=== PATIENT | female | born 1965 | race Two or more races ===

== ENCOUNTER → 2017-12-24 17:49 | Outpatient (CLI) | payer OTHER | END | disposition home or self-care (01) | LOC: LAB 17:49 | DX: R50.9 Fever, unspecified (principal); R05 Cough ==

== ENCOUNTER → 2017-12-24 | Outpatient (CLI) | payer OTHER ==
[~2017-12-24] VITALS: Ht 152.4 cm; Wt 81.6 kg
[~2017-12-24] MED LIST: FLONASE16 GM NS; GILTUSS TR TAB1 EACH PO; HYZAAR 100-12.1 EACH; HYZAAR 50-12.51 EACH; HYZAAR 50-12.51 EACH PO; LIPITOR20 MG PO; PRAVASTATIN SOD20 MG; PRAVASTATIN SOD20 MG PO; PROAIR HFA8.5 GM IH; SYNTHROID50 MCG; SYNTHROID50 MCG PO; VITAMIN E & D B52 ML; VITAMIN E & D B52 ML PO; ZITHROMAX TRI-500 MG PO; ZYRTEC10 MG PO
== END | disposition home or self-care (01) ==
LOC: PPHC 16:00
DX: R05 Cough (principal); R50.9 Fever, unspecified; R51 Headache; J06.9 Acute upper respiratory infection, unspecified

== ENCOUNTER → 2018-03-04 | Outpatient (CLI) | payer OTHER | END | disposition home or self-care (01) | LOC: PPHC 08:18 | DX: A08.8 Other specified intestinal infections (principal) ==

== ENCOUNTER 2018-03-13 06:07 | Outpatient (CLI) | payer OTHER | END 2018-03-13 06:15 | disposition home or self-care (01) | LOC: LAB 06:07 | DX: D64.9 Anemia, unspecified (principal); N39.0 Urinary tract infection, site not specified; R10.9 Unspecified abdominal pain; E03.9 Hypothyroidism, unspecified; E78.5 Hyperlipidemia, unspecified; R80.9 Proteinuria, unspecified; E11.9 Type 2 diabetes mellitus without complications; R73.09 Other abnormal glucose ==

== ENCOUNTER 2018-04-16 10:29 | Outpatient (CLI) | payer OTHER | END 2018-04-16 14:07 | disposition home or self-care (01) | LOC: LAB 10:29 | DX: Z11.3 Encounter for screening for infections with a predominantly sexual mode of transmission (principal) ==

== ENCOUNTER 2018-04-30 07:23 | Outpatient (CLI) | payer OTHER | END 2018-05-01 08:41 | disposition home or self-care (01) | LOC: SONOGRAMA 07:23 | DX: E03.8 Other specified hypothyroidism (principal) ==

== ENCOUNTER 2018-10-21 07:47 | Outpatient (CLI) | payer OTHER | END 2018-10-21 07:54 | disposition home or self-care (01) | LOC: MAMO-SONO 07:47 | DX: Z12.31 Encounter for screening mammogram for malignant neoplasm of breast (principal) ==

== ENCOUNTER 2018-10-22 08:02 | Emergency (ER) | payer OTHER ==
[~2018-10-22] VITALS: Ht 167.6 cm; Wt 81.6 kg
== END 2018-10-22 09:19 | disposition home or self-care (01) ==
LOC: ER 08:02
DX: R42 Dizziness and giddiness (principal); R51 Headache

== ENCOUNTER → 2018-10-31 06:18 | Outpatient (CLI) | payer OTHER | END | disposition home or self-care (01) | LOC: LAB 06:18 | DX: I10 Essential (primary) hypertension (principal); E55.9 Vitamin D deficiency, unspecified; E03.8 Other specified hypothyroidism ==

== ENCOUNTER 2018-11-04 10:25 | Outpatient (CLI) | payer OTHER | END 2018-11-04 10:26 | disposition home or self-care (01) | LOC: SONOGRAMA 10:25 | DX: N64.4 Mastodynia (principal) ==

== ENCOUNTER 2018-12-20 09:07 | Outpatient (CLI) | payer OTHER | END 2018-12-20 09:13 | disposition home or self-care (01) | LOC: LAB 09:07 | DX: J11.1 Influenza due to unidentified influenza virus with other respiratory manifestations (principal); J06.9 Acute upper respiratory infection, unspecified ==

== ENCOUNTER 2019-01-30 06:43 | Outpatient (CLI) | payer OTHER | END 2019-01-30 07:48 | disposition home or self-care (01) | LOC: LAB 06:43 | DX: D64.89 Other specified anemias (principal); E11.9 Type 2 diabetes mellitus without complications; E78.2 Mixed hyperlipidemia; K76.89 Other specified diseases of liver; E03.8 Other specified hypothyroidism; E55.9 Vitamin D deficiency, unspecified; R29.898 Other symptoms and signs involving the musculoskeletal system ==

== ENCOUNTER 2019-05-12 06:12 | Outpatient (CLI) | payer OTHER | END 2019-05-12 06:13 | disposition home or self-care (01) | LOC: LAB 06:12 | DX: D68.8 Other specified coagulation defects (principal); M20.5X9 Other deformities of toe(s) (acquired), unspecified foot ==

== ENCOUNTER → 2019-07-10 06:13 | Outpatient (CLI) | payer OTHER | END | disposition home or self-care (01) | LOC: LAB 06:13 | DX: I10 Essential (primary) hypertension (principal); E11.9 Type 2 diabetes mellitus without complications; E78.2 Mixed hyperlipidemia ==

== ENCOUNTER 2019-07-29 06:03 | Outpatient (CLI) | payer OTHER | END 2019-07-29 06:11 | disposition home or self-care (01) | LOC: LAB 06:03 | DX: E03.8 Other specified hypothyroidism (principal); E04.1 Nontoxic single thyroid nodule; E78.2 Mixed hyperlipidemia ==

== ENCOUNTER 2019-09-19 09:06 | Outpatient (CLI) | payer OTHER ==
[2019-10-05] MEDS ORDERED: DICLOFENAC POTA50 MG PO (09:45)
[2019-10-05] MEDS ORDERED: ROBAXIN-750750 MG PO (09:45)
== END 2019-09-19 09:12 | disposition home or self-care (01) ==
LOC: RAD 09:06
DX: M54.89 Other dorsalgia (principal); M25.552 Pain in left hip

== ENCOUNTER → 2019-11-12 | Outpatient (CLI) | payer OTHER ==
[~2019-11-12] MED LIST changes: +DICLOFENAC POTA50 MG PO; +ROBAXIN-750750 MG PO
== END | disposition home or self-care (01) ==
LOC: RAD 09:20
DX: N64.4 Mastodynia (principal)

== ENCOUNTER 2020-01-15 07:27 | Outpatient (CLI) | payer OTHER | END 2020-01-15 11:23 | disposition home or self-care (01) | LOC: SONOGRAMA 07:27 | DX: E04.2 Nontoxic multinodular goiter (principal) ==

== ENCOUNTER → 2020-01-22 06:22 | Outpatient (CLI) | payer OTHER | END | disposition home or self-care (01) | LOC: LAB 06:22 | DX: D64.89 Other specified anemias (principal); E11.9 Type 2 diabetes mellitus without complications; E78.2 Mixed hyperlipidemia; E03.8 Other specified hypothyroidism; I10 Essential (primary) hypertension ==

== ENCOUNTER 2020-06-02 13:55 | Outpatient (CLI) | payer OTHER | END 2020-06-02 14:00 | disposition home or self-care (01) | LOC: OFIC 805 13:55 | PROVIDERS: ATTEND Otolaryngology | DX: H91.8X3 Other specified hearing loss, bilateral (principal) ==

== ENCOUNTER 2020-07-07 14:25 | Outpatient (CLI) | payer OTHER | END 2020-07-07 15:00 | disposition home or self-care (01) | LOC: OFIC 805 14:25 | PROVIDERS: ATTEND Otolaryngology | DX: H90.41 Sensorineural hearing loss, unilateral, right ear, with unrestricted hearing on the contralateral side (principal) ==

== ENCOUNTER 2020-07-26 06:08 | Outpatient (CLI) | payer OTHER | END 2020-07-26 06:15 | disposition home or self-care (01) | LOC: LAB 06:08 | PROVIDERS: ATTEND Internal Medicine Sports Medicine | DX: D64.89 Other specified anemias (principal); E11.9 Type 2 diabetes mellitus without complications; E78.2 Mixed hyperlipidemia; I10 Essential (primary) hypertension; E03.8 Other specified hypothyroidism ==

== ENCOUNTER → 2020-08-30 08:16 | Outpatient (CLI) | payer OTHER | END | disposition home or self-care (01) | LOC: PPH VACUNA 08:16 | DX: Z23 Encounter for immunization (principal) ==

== ENCOUNTER → 2020-09-17 07:56 | Outpatient (CLI) | payer OTHER | END | disposition home or self-care (01) | LOC: LAB 07:56 | PROVIDERS: ATTEND Otolaryngology | DX: R22.1 Localized swelling, mass and lump, neck (principal) ==

== ENCOUNTER 2020-11-09 12:16 | Outpatient (CLI) | payer OTHER | END 2020-11-09 13:00 | disposition home or self-care (01) | LOC: MAMO-SONO 12:16 | PROVIDERS: ATTEND Radiology Diagnostic Radiology | DX: Z12.31 Encounter for screening mammogram for malignant neoplasm of breast (principal); N64.59 Other signs and symptoms in breast ==

== ENCOUNTER → 2020-11-12 07:48 | Outpatient (CLI) | payer OTHER | END | disposition home or self-care (01) | LOC: LAB 07:48 | PROVIDERS: ATTEND Radiology Diagnostic Radiology | DX: N20.0 Calculus of kidney (principal) ==

== ENCOUNTER → 2020-11-14 15:00 | Outpatient (CLI) | payer OTHER | END | disposition home or self-care (01) | LOC: PPH VACUNA 15:00 | DX: Z23 Encounter for immunization (principal) ==

== ENCOUNTER 2020-12-13 06:57 | Outpatient (CLI) | payer OTHER | END 2020-12-13 07:05 | disposition home or self-care (01) | LOC: TOM 06:57 | PROVIDERS: ATTEND Otolaryngology | DX: R22.1 Localized swelling, mass and lump, neck (principal) ==

== ENCOUNTER → 2021-01-02 06:19 | Outpatient (CLI) | payer OTHER | END | disposition home or self-care (01) | LOC: LAB 06:19 | PROVIDERS: ATTEND Internal Medicine | DX: D64.89 Other specified anemias (principal); R10.84 Generalized abdominal pain; E03.8 Other specified hypothyroidism; E78.49 Other hyperlipidemia; R80.8 Other proteinuria; E11.9 Type 2 diabetes mellitus without complications ==

== ENCOUNTER 2021-01-25 06:42 | Outpatient (CLI) | payer OTHER | END 2021-01-25 06:48 | disposition home or self-care (01) | LOC: LAB 06:42 | PROVIDERS: ATTEND Internal Medicine Sports Medicine | DX: D64.89 Other specified anemias (principal); E11.9 Type 2 diabetes mellitus without complications; E78.2 Mixed hyperlipidemia; E03.8 Other specified hypothyroidism; I10 Essential (primary) hypertension ==

== ENCOUNTER → 2021-02-23 | Outpatient (CLI) | payer OTHER | END | disposition home or self-care (01) | LOC: RAD 02-22 10:32 | PROVIDERS: ATTEND Physical Medicine & Rehabilitation | DX: M54.2 Cervicalgia (principal); M51.06 Intervertebral disc disorders with myelopathy, lumbar region; M54.5 Low back pain ==

== ENCOUNTER → 2021-02-27 16:13 | Outpatient (CLI) | payer OTHER | END | disposition home or self-care (01) | LOC: LAB 14:02 | PROVIDERS: ATTEND Physical Medicine & Rehabilitation | DX: R05 Cough (principal); R50.9 Fever, unspecified; Z03.818 Encounter for observation for suspected exposure to other biological agents ruled out ==

== ENCOUNTER 2021-05-15 08:44 | Outpatient (CLI) | payer OTHER | END 2021-05-15 08:45 | disposition home or self-care (01) | LOC: LAB 08:44 | PROVIDERS: ATTEND Urology | DX: Z11.3 Encounter for screening for infections with a predominantly sexual mode of transmission (principal) ==

== ENCOUNTER 2021-05-30 16:21 | Outpatient (CLI) | payer OTHER | END 2021-05-30 16:26 | disposition home or self-care (01) | LOC: RAD 16:21 | PROVIDERS: ATTEND Physical Medicine & Rehabilitation | DX: I10 Essential (primary) hypertension (principal); K13.4 Granuloma and granuloma-like lesions of oral mucosa ==

== ENCOUNTER 2021-06-27 11:01 | Outpatient (CLI) | payer OTHER | END 2021-06-27 11:06 | disposition home or self-care (01) | LOC: RAD 11:01 | PROVIDERS: ATTEND Radiology Diagnostic Radiology | DX: M79.642 Pain in left hand (principal) ==

== ENCOUNTER → 2021-08-02 06:09 | Outpatient (CLI) | payer OTHER | END | disposition home or self-care (01) | LOC: LAB 06:09 | PROVIDERS: ATTEND Internal Medicine Sports Medicine | DX: D64.89 Other specified anemias (principal); E11.9 Type 2 diabetes mellitus without complications; E78.2 Mixed hyperlipidemia; I10 Essential (primary) hypertension; E03.8 Other specified hypothyroidism ==

== ENCOUNTER 2021-08-14 08:00 | Outpatient (CLI) | payer OTHER | END 2021-08-14 08:30 | disposition home or self-care (01) | LOC: PPH VACUNA 08:00 | PROVIDERS: ATTEND Emergency Medicine Pediatric Emergency Medicine | DX: Z23 Encounter for immunization (principal) ==

== ENCOUNTER 2021-11-14 08:22 | Outpatient (CLI) | payer OTHER | END 2021-11-14 08:27 | disposition home or self-care (01) | LOC: MAMO-SONO 08:22 | PROVIDERS: ATTEND Internal Medicine Sports Medicine | DX: N60.02 Solitary cyst of left breast (principal); N64.59 Other signs and symptoms in breast; Z12.31 Encounter for screening mammogram for malignant neoplasm of breast ==

== ENCOUNTER → 2021-12-26 06:13 | Outpatient (CLI) | payer OTHER | END | disposition home or self-care (01) | LOC: LAB 06:13 | PROVIDERS: ATTEND Internal Medicine | DX: D64.9 Anemia, unspecified (principal); R10.9 Unspecified abdominal pain; E78.5 Hyperlipidemia, unspecified ==

== ENCOUNTER → 2022-01-09 06:20 | Outpatient (CLI) | payer OTHER | END | disposition home or self-care (01) | LOC: LAB 06:20 | PROVIDERS: ATTEND Internal Medicine Sports Medicine | DX: D64.9 Anemia, unspecified (principal); E11.9 Type 2 diabetes mellitus without complications; E78.2 Mixed hyperlipidemia; I10 Essential (primary) hypertension; E03.8 Other specified hypothyroidism; E55.9 Vitamin D deficiency, unspecified ==

== ENCOUNTER 2022-01-09 10:18 | Outpatient (CLI) | payer OTHER | END 2022-01-09 10:22 | disposition home or self-care (01) | LOC: SONOGRAMA 10:18 | PROVIDERS: ATTEND Internal Medicine Sports Medicine | DX: E04.1 Nontoxic single thyroid nodule (principal) ==

== ENCOUNTER 2022-02-21 10:54 | Outpatient (CLI) | payer OTHER | END 2022-02-21 11:10 | disposition home or self-care (01) | LOC: NUCLEAR 10:54 | PROVIDERS: ATTEND Internal Medicine Sports Medicine | DX: M81.0 Age-related osteoporosis without current pathological fracture (principal) ==

== ENCOUNTER 2022-06-08 14:20 | Outpatient (CLI) | payer OTHER | END 2022-06-08 14:28 | disposition home or self-care (01) | LOC: SONOGRAMA 14:20 | PROVIDERS: ATTEND Radiology Diagnostic Radiology | DX: N63.0 Unspecified lump in unspecified breast (principal) ==

== ENCOUNTER 2022-07-03 05:58 | Outpatient (CLI) | payer OTHER | END 2022-07-03 05:59 | disposition home or self-care (01) | LOC: LAB 05:58 | PROVIDERS: ATTEND Internal Medicine Sports Medicine | DX: D64.9 Anemia, unspecified (principal); E11.9 Type 2 diabetes mellitus without complications; E78.2 Mixed hyperlipidemia; I10 Essential (primary) hypertension; E03.8 Other specified hypothyroidism ==

== ENCOUNTER 2022-08-01 08:00 | Outpatient (CLI) | payer OTHER | END 2022-08-01 08:05 | disposition home or self-care (01) | LOC: PPH VACUNA 08:00 | PROVIDERS: ATTEND Emergency Medicine Pediatric Emergency Medicine | DX: Z23 Encounter for immunization (principal) ==

== ENCOUNTER 2022-08-30 13:22 | Outpatient (CLI) | payer OTHER | END 2022-08-30 13:32 | disposition home or self-care (01) | LOC: RAD 13:22 | DX: M99.01 Segmental and somatic dysfunction of cervical region (principal); M99.02 Segmental and somatic dysfunction of thoracic region; M99.03 Segmental and somatic dysfunction of lumbar region; M99.04 Segmental and somatic dysfunction of sacral region; M99.05 Segmental and somatic dysfunction of pelvic region ==

== ENCOUNTER → 2022-09-03 11:53 | Outpatient (CLI) | payer OTHER | END | disposition home or self-care (01) | LOC: LAB 11:53 | PROVIDERS: ATTEND General Practice | DX: R05.9 Cough, unspecified (principal); R50.9 Fever, unspecified; R06.02 Shortness of breath; Z20.822 Contact with and (suspected) exposure to COVID-19 ==

== ENCOUNTER 2022-12-10 06:38 | Outpatient (CLI) | payer OTHER | END 2022-12-10 06:41 | disposition home or self-care (01) | LOC: LAB 06:38 | PROVIDERS: ATTEND Obstetrics & Gynecology Gynecology | DX: Z12.11 Encounter for screening for malignant neoplasm of colon (principal); E55.9 Vitamin D deficiency, unspecified ==

== ENCOUNTER 2022-12-27 07:06 | Outpatient (CLI) | payer OTHER | END 2022-12-27 07:10 | disposition home or self-care (01) | LOC: MAMO-SONO 07:06 | PROVIDERS: ATTEND Internal Medicine Sports Medicine | DX: N63.20 Unspecified lump in the left breast, unspecified quadrant (principal); N63.10 Unspecified lump in the right breast, unspecified quadrant ==

== ENCOUNTER 2023-03-16 09:41 | Outpatient (CLI) | payer OTHER | END 2023-03-16 09:46 | disposition home or self-care (01) | LOC: LAB 09:41 | PROVIDERS: ATTEND Internal Medicine Sports Medicine | DX: D64.9 Anemia, unspecified (principal); E11.9 Type 2 diabetes mellitus without complications; E78.2 Mixed hyperlipidemia; I10 Essential (primary) hypertension; E03.8 Other specified hypothyroidism ==

== ENCOUNTER 2023-06-20 14:41 | Outpatient (CLI) | payer OTHER | END 2023-06-20 14:43 | disposition home or self-care (01) | LOC: RAD 14:41 | PROVIDERS: ATTEND Radiology Diagnostic Radiology | DX: R05.9 Cough, unspecified (principal) ==

== ENCOUNTER 2023-07-18 | Outpatient (CLI) | payer OTHER | END 2023-07-18 00:15 | disposition home or self-care (01) | LOC: PPH VACUNA | PROVIDERS: ATTEND Emergency Medicine Pediatric Emergency Medicine | DX: Z23 Encounter for immunization (principal) | CPT/HCPCS: 90686; G0008 ==

== ENCOUNTER 2023-08-29 08:21 | Outpatient (CLI) | payer OTHER | END 2023-08-29 08:28 | disposition home or self-care (01) | LOC: SONOGRAMA 08:21 | PROVIDERS: ATTEND Radiology Diagnostic Radiology | DX: R29.91 Unspecified symptoms and signs involving the musculoskeletal system (principal); M25.531 Pain in right wrist ==

== ENCOUNTER 2023-09-25 05:51 | Outpatient (CLI) | payer OTHER ==
[2023-09-25 07:27] LABS: URINE APPEARANCE Clear; URINE BILIRRUBIN Negative (NEGATIVE); URINE BLOOD Negative; URINE COLOR Yellow; URINE GLUCOSE Negative (NEGATIVE); URINE LEUKOCYTE Moderate; URINE NITRATE Negative; URINE PROTEIN Trace (NEGATIVE)
[2023-09-25 07:32] LABS: URINE BACTERIA 537.9 uL (0.0-1933); URINE EPITHELIAL CELLS 42.9 uL (0.0-38.8); URINE RBC 21.7 uL (0.0-20.8); URINE WBC 29.8 uL (0.0-23.2)
[2023-09-25 08:27] LABS: HEMATOCRIT 35.1 % (36.0-45.00); HEMOGLOBIN 12.2 g/dL (12.0-15.00); MEAN CELL VOLUME 83.8 fL (80.00-100.00); MEAN CORPUSCULAR HEMOGLOBIN 29.3 pg (27.00-32.0); MEAN CORPUSCULAR HGB CONC 34.9 g/dl (32.0-36.0); PLATELET COUNT 212 K/uL (150-450); RED BLOOD COUNT 4.19 M/uL (4.00-6.00); RED CELL DISTRIBUTION WIDTH 13.2 % (11.5-14.5)
[2023-09-25 08:29] LABS: ALBUMIN 3.7 gm/dL (3.4-5.0); BILIRUBIN TOTAL 0.4 mg/dL (0.3-1.2); CALCIUM 8.7 mg/dL (8.5-10.1); CHOL HDL RATIO 3.3 (0-5.0); CREATININE SERUM 0.77 mg/dL (0.55-1.02); GFR 76.73; GLOBULINA 3.2 G/DL (2.4-3.5); POTASSIUM 3.54 mEq/L (3.5-5.1); T4 FREE 0.96 NG/ML (0.76-1.46); TOTAL PROTEIN 6.9 gm/dL (6.4-8.2); TSH 1.15 uIU/mL (0.358-3.74)
== END 2023-09-25 05:55 | disposition home or self-care (01) ==
LOC: LAB 05:51
PROVIDERS: ATTEND Internal Medicine Sports Medicine
DX: E11.9 Type 2 diabetes mellitus without complications (principal); E78.2 Mixed hyperlipidemia; I10 Essential (primary) hypertension; E03.8 Other specified hypothyroidism

== ENCOUNTER 2024-01-06 13:16 | Outpatient (CLI) | payer OTHER | END 2024-01-06 13:22 | disposition home or self-care (01) | LOC: MAMO-SONO 13:16 | PROVIDERS: ATTEND Internal Medicine Sports Medicine | DX: Z12.31 Encounter for screening mammogram for malignant neoplasm of breast (principal) ==

== ENCOUNTER 2024-01-30 13:22 | Outpatient (CLI) | payer OTHER | END 2024-01-30 13:29 | disposition home or self-care (01) | LOC: SONOGRAMA 13:22 | PROVIDERS: ATTEND Internal Medicine Sports Medicine | DX: E07.9 Disorder of thyroid, unspecified (principal) ==

== ENCOUNTER 2024-01-31 15:56 | Outpatient (CLI) | payer OTHER ==
[2024-01-31 07:45] LABS: PH,URINE 5.5 (5.0-8.0); URINE APPEARANCE Clear; URINE BACTERIA 44.1 uL (0.0-1933); URINE BILIRRUBIN Negative (NEGATIVE); URINE BLOOD Negative; URINE COLOR Yellow; URINE EPITHELIAL CELLS 8.6 uL (0.0-38.8); URINE GLUCOSE Negative (NEGATIVE); URINE LEUKOCYTE Small; URINE NITRATE Negative; URINE PROTEIN Negative (NEGATIVE); URINE RBC 14.3 uL (0.0-20.8); URINE UROBILINOGEN 0.2 E.U./dl; URINE WBC 4.6 uL (0.0-23.2)
[2024-01-31 07:53] LABS: HEMATOCRIT 36.5 % (36.0-45.00); HEMOGLOBIN 12.6 g/dL (12.0-15.00); MEAN CELL VOLUME 84.1 fL (80.00-100.00); MEAN CORPUSCULAR HEMOGLOBIN 28.9 pg (27.00-32.0); MEAN CORPUSCULAR HGB CONC 34.4 g/dl (32.0-36.0); PLATELET COUNT 214 K/uL (150-450); RED BLOOD COUNT 4.34 M/uL (4.00-6.00); RED CELL DISTRIBUTION WIDTH 13.2 % (11.5-14.5)
[2024-01-31 08:22] LABS: ALBUMIN 3.9 gm/dL (3.4-5.0); BILIRUBIN TOTAL 0.48 mg/dL (0.3-1.2); CHOL HDL RATIO 3.8 (0-5.0); CREATININE SERUM 0.86 mg/dL (0.55-1.02); GFR 67.54; GLOBULINA 3.5 G/DL (2.4-3.5); POTASSIUM 3.72 mEq/L (3.5-5.1); T4 FREE 1.05 NG/ML (0.76-1.46); TOTAL PROTEIN 7.4 gm/dL (6.4-8.2); TSH 0.999 uIU/mL (0.358-3.74)
== END 2024-01-31 16:00 | disposition home or self-care (01) ==
LOC: LAB 15:56
PROVIDERS: ATTEND Internal Medicine Sports Medicine
DX: E55.9 Vitamin D deficiency, unspecified (principal)

== ENCOUNTER → 2024-08-05 11:44 | Outpatient (CLI) | payer OTHER ==
[2024-08-05 06:49] LABS: HEMATOCRIT 36.2 % (36.0-45.00); HEMOGLOBIN 12.8 g/dL (12.0-15.00); MEAN CELL VOLUME 83.8 fL (80.00-100.00); MEAN CORPUSCULAR HEMOGLOBIN 29.7 pg (27.00-32.0); MEAN CORPUSCULAR HGB CONC 35.4 g/dl (32.0-36.0); PLATELET COUNT 218 K/uL (150-450); RED BLOOD COUNT 4.32 M/uL (4.00-6.00)
[2024-08-05 06:54] LABS: URINE APPEARANCE Clear; URINE BILIRRUBIN Negative (NEGATIVE); URINE BLOOD Negative; URINE COLOR Yellow; URINE GLUCOSE Negative (NEGATIVE); URINE KETONE Negative (NEGATIVE); URINE LEUKOCYTE Large; URINE NITRATE Negative; URINE PROTEIN Negative (NEGATIVE); URINE UROBILINOGEN 0.2 E.U./dl
[2024-08-05 06:55] LABS: URINE BACTERIA 197.8 uL (0.0-1933); URINE EPITHELIAL CELLS 17.7 uL (0.0-38.8); URINE RBC 23.2 uL (0.0-20.8)
[2024-08-05 07:00] LABS: URINE CAST 0.45 uL (0.0-1.40)
[2024-08-05 07:43] LABS: ALBUMIN 4.1 gm/dL (3.4-5.0); BILIRUBIN TOTAL 0.52 mg/dL (0.3-1.2); CALCIUM 9.2 mg/dL (8.5-10.1); CHOL HDL RATIO 3.9 (0-5.0); CREATININE SERUM 0.78 mg/dL (0.55-1.02); GFR 75.33; GLOBULINA 3.6 G/DL (2.4-3.5); POTASSIUM 3.76 mEq/L (3.5-5.1); T4 FREE 0.99 NG/ML (0.76-1.46); TOTAL PROTEIN 7.7 gm/dL (6.4-8.2); TSH 0.743 uIU/mL (0.358-3.74)
== END | disposition home or self-care (01) ==
LOC: LAB 08-04 14:03
PROVIDERS: ATTEND Internal Medicine Sports Medicine
DX: D64.9 Anemia, unspecified (principal); E11.9 Type 2 diabetes mellitus without complications; E78.2 Mixed hyperlipidemia; I10 Essential (primary) hypertension; E03.8 Other specified hypothyroidism; E55.9 Vitamin D deficiency, unspecified

== ENCOUNTER 2024-09-30 09:30 | Outpatient (CLI) | payer OTHER | END 2024-09-30 10:00 | disposition home or self-care (01) | LOC: PPH VACUNA 09:30 | PROVIDERS: ATTEND Emergency Medicine Pediatric Emergency Medicine | DX: Z23 Encounter for immunization (principal) ==

== ENCOUNTER 2024-09-30 11:05 | Outpatient (CLI) | payer OTHER | END 2024-09-30 11:06 | disposition home or self-care (01) | LOC: SONOGRAMA 11:05 | PROVIDERS: ATTEND Radiology Diagnostic Radiology | DX: M25.512 Pain in left shoulder (principal) ==

== ENCOUNTER 2024-11-02 06:20 | Outpatient (CLI) | payer OTHER ==
[2024-11-02 07:07] LABS: HEMATOCRIT 36.2 % (36.0-45.00); HEMOGLOBIN 12.4 g/dL (12.0-15.00); MEAN CELL VOLUME 84.6 fL (80.00-100.00); MEAN CORPUSCULAR HGB CONC 34.3 g/dl (32.0-36.0); PLATELET COUNT 213 K/uL (150-450); RED BLOOD COUNT 4.28 M/uL (4.00-6.00); RED CELL DISTRIBUTION WIDTH 13.2 % (11.5-14.5)
[2024-11-02 07:26] LABS: PH,URINE 5.5 (5.0-8.0); URINE APPEARANCE Clear; URINE BILIRRUBIN Negative (NEGATIVE); URINE BLOOD Negative; URINE COLOR Yellow; URINE GLUCOSE Negative (NEGATIVE); URINE KETONE Trace (NEGATIVE); URINE LEUKOCYTE Negative; URINE NITRATE Negative; URINE PROTEIN Trace (NEGATIVE)
[2024-11-02 07:36] LABS: URINE EPITHELIAL CELLS 14.3 uL (0.0-38.8); URINE RBC 33.1 uL (0.0-20.8); URINE WBC 8.2 uL (0.0-23.2)
[2024-11-02 07:58] LABS: URINE CAST 0.58 uL (0.0-1.40)
[2024-11-02 08:05] LABS: ALBUMIN 3.9 gm/dL (3.4-5.0); BILIRUBIN TOTAL 0.32 mg/dL (0.3-1.2); CALCIUM 8.9 mg/dL (8.5-10.1); CHOL HDL RATIO 3.9 (0-5.0); CREATININE SERUM 0.86 mg/dL (0.55-1.02); GFR 67.31; GLOBULINA 3.2 G/DL (2.4-3.5); POTASSIUM 3.42 mEq/L (3.5-5.1); TOTAL PROTEIN 7.1 gm/dL (6.4-8.2); TSH 1.23 uIU/mL (0.358-3.74)
== END 2024-11-02 06:21 | disposition home or self-care (01) ==
LOC: LAB 06:20
PROVIDERS: ATTEND Internal Medicine
DX: I11.9 Hypertensive heart disease without heart failure (principal); E11.9 Type 2 diabetes mellitus without complications; E78.9 Disorder of lipoprotein metabolism, unspecified; E03.9 Hypothyroidism, unspecified

== ENCOUNTER 2025-03-03 12:55 | Outpatient (CLI) | payer OTHER | END 2025-03-03 13:03 | disposition home or self-care (01) | LOC: MAMO-SONO 12:55 | PROVIDERS: ATTEND General Practice | DX: N64.4 Mastodynia (principal) ==

== ENCOUNTER 2025-03-26 08:50 | Outpatient (CLI) | payer OTHER ==
[2025-03-26 09:42] LABS: PH,URINE 5.5 (5.0-8.0); URINE APPEARANCE Clear; URINE BILIRRUBIN Negative (NEGATIVE); URINE BLOOD Negative; URINE COLOR Yellow; URINE GLUCOSE Negative (NEGATIVE); URINE KETONE Trace (NEGATIVE); URINE LEUKOCYTE Negative; URINE NITRATE Negative; URINE PROTEIN Negative (NEGATIVE)
[2025-03-26 09:49] LABS: URINE BACTERIA 6.1 uL (0.0-1933); URINE EPITHELIAL CELLS 1.7 uL (0.0-38.8); URINE RBC 15.4 uL (0.0-20.8); URINE WBC 2.6 uL (0.0-23.2)
[2025-03-26 10:03] LABS: URINE CAST 0.29 uL (0.0-1.40)
[2025-03-26 10:12] LABS: BASO % 0.6 % (0.1-1.2); EOS # 0.13 (0.04-0.54); EOS % 2.4 % (0.7-7.0); HEMATOCRIT 36.5 % (34.1-44.9); HEMOGLOBIN 12.4 g/dL (11.2-15.7); LYMPH # 1.86 (1.18-3.74); LYMPH % 34.9 % (19.3-53.1); MEAN CORPUSCULAR HEMOGLOBIN 28.7 pg (25.6-32.2); MONO # 0.38 (0.24-0.82); MONO % 7.1 % (4.7-12.5); NEUT # 2.91 (1.56-6.13); NEUT % 54.6 % (34.0-71.1); PLATELET COUNT 247 K/uL (163-369); RED BLOOD COUNT 4.32 M/uL (3.93-5.22); RED CELL DISTRIBUTION WIDTH 11.9 % (11.6-14.4)
[2025-03-26 11:10] LABS: BILIRUBIN TOTAL 0.52 mg/dL (0.3-1.2); CHOL HDL RATIO 4.7 (0-5.0); CREATININE SERUM 0.81 mg/dL (0.55-1.02); GFR 71.88; GLOBULINA 3.5 G/DL (2.4-3.5); POTASSIUM 4.01 mEq/L (3.5-5.1); T4 FREE 1.03 NG/ML (0.76-1.46); TOTAL PROTEIN 7.5 gm/dL (6.4-8.2); TSH 0.645 uIU/mL (0.358-3.74)
== END 2025-03-26 15:12 | disposition home or self-care (01) ==
LOC: LAB 08:50
PROVIDERS: ATTEND Internal Medicine Sports Medicine
DX: E55.9 Vitamin D deficiency, unspecified (principal)

== ENCOUNTER 2025-07-06 13:08 | Outpatient (CLI) | payer OTHER ==
[2025-07-08 05:07] LABS: HEPATITIS A ANTIBODY IGG Positive (Negative); HEPATITIS B SURFACE ANTIBODY Non Reactive (.); HEPATITIS C VIRUS ANTIBODY Non Reactive (Non Reactive)
== END 2025-07-06 14:02 | disposition home or self-care (01) ==
LOC: LAB 13:08
DX: A64 Unspecified sexually transmitted disease (principal); B19.9 Unspecified viral hepatitis without hepatic coma

== ENCOUNTER → 2025-09-07 | Emergency (ER) | payer OTHER ==
[~2025-09-07] VITALS: Ht 165.1 cm; Wt 79.8 kg
[~2025-09-07] MED LIST changes: +DEXAMETHASONE SODIUM PHOSPHATE 4 MG/ML VIAL IV ONE; +DEXAMETHASONE SODIUM PHOSPHATE 4 MG/ML VIAL ONE; +ENALAPRILAT DIHYDRATE 1.25 MG/ML VIAL IV ONE; +IBU600 MG PO; +MECLIZINE HCL12.5 MG PO
[2025-09-07 17:10] LABS: BASO % 0.3 % (0.1-1.2); EOS # 0.14 (0.04-0.54); EOS % 1.9 % (0.7-7.0); LYMPH # 2.22 (1.18-3.74); LYMPH % 30.4 % (19.3-53.1); MEAN PLATELET VOLUME 10.20 fl (9.4-12.4); MONO # 0.40 (0.24-0.82); MONO % 5.5 % (4.7-12.5); NEUT # 4.50 (1.56-6.13); NEUT % 61.6 % (34.0-71.1); RED CELL DISTRIBUTION WIDTH 11.8 % (11.6-14.4)
[2025-09-07 17:21] LABS: COVID-19 AG NEGATIVE (NEGATIVE)
[2025-09-07 17:29] LABS: INR 1.02
[2025-09-07 17:50] LABS: URINE APPEARANCE Clear; URINE BILIRRUBIN Negative (NEGATIVE); URINE BLOOD Negative; URINE COLOR Yellow; URINE GLUCOSE Negative (NEGATIVE); URINE KETONE Negative (NEGATIVE); URINE LEUKOCYTE Negative; URINE NITRATE Negative; URINE PROTEIN Negative (NEGATIVE); URINE UROBILINOGEN 0.2 E.U./dl
[2025-09-07 17:51] LABS: ALT/SGPT 29.0 U/L (12-78); AST/SGOT 18.0 U/L (15-37); BILIRUBIN TOTAL 0.35 mg/dL (0.3-1.2); BUN CREA RATIO 17.0 (7.0-25.0); CREATININE SERUM 0.9 mg/dL (0.55-1.02); GFR 63.65; GLOBULINA 3.5 G/DL (2.4-3.5); GLUCOSE FASTING 106.0 mg/dL (65-100); OSMOLALITY SERUM 284.0 MOSM/KG (275-295); TSH 0.519 uIU/mL (0.358-3.74)
[2025-09-07 18:09] LABS: URINE BACTERIA 1.1 uL (0.0-1933); URINE CAST 0.00 uL (0.0-1.40); URINE EPITHELIAL CELLS 0.1 uL (0.0-38.8); URINE RBC 1.4 uL (0.0-20.8); URINE WBC 0.4 uL (0.0-23.2)
[2025-09-07 20:42] VITALS: BP 120/70; O2SAT 100
== END | disposition home or self-care (01) ==
LOC: EMR PED 14:30 → ER 14:30
DX: R42 Dizziness and giddiness (principal); M62.838 Other muscle spasm; Z20.822 Contact with and (suspected) exposure to COVID-19; I10 Essential (primary) hypertension; E03.8 Other specified hypothyroidism

== ENCOUNTER 2025-09-20 06:07 | Outpatient (CLI) | payer OTHER ==
[~2025-09-20 06:07] MED LIST changes: -DEXAMETHASONE SODIUM PHOSPHATE 4 MG/ML VIAL IV ONE; -DEXAMETHASONE SODIUM PHOSPHATE 4 MG/ML VIAL ONE; -ENALAPRILAT DIHYDRATE 1.25 MG/ML VIAL IV ONE
[2025-09-20 06:38] LABS: URINE APPEARANCE Clear; URINE BILIRRUBIN Negative (NEGATIVE); URINE BLOOD Negative; URINE COLOR Yellow; URINE GLUCOSE Negative (NEGATIVE); URINE KETONE Trace (NEGATIVE); URINE LEUKOCYTE Trace; URINE NITRATE Negative; URINE PROTEIN Negative (NEGATIVE); URINE UROBILINOGEN 1.0 E.U./dl
[2025-09-20 06:39] LABS: BASO % 0.4 % (0.1-1.2); EOS # 0.10 (0.04-0.54); EOS % 1.9 % (0.7-7.0); LYMPH # 2.03 (1.18-3.74); LYMPH % 38.3 % (19.3-53.1); MEAN PLATELET VOLUME 10.20 fl (9.4-12.4); MONO # 0.33 (0.24-0.82); MONO % 6.2 % (4.7-12.5); NEUT # 2.81 (1.56-6.13); NEUT % 53.0 % (34.0-71.1); RED CELL DISTRIBUTION WIDTH 12.1 % (11.6-14.4)
[2025-09-20 06:42] LABS: URINE BACTERIA 12.0 uL (0.0-1933); URINE EPITHELIAL CELLS 9.6 uL (0.0-38.8); URINE RBC 43.7 uL (0.0-20.8); URINE WBC 7.5 uL (0.0-23.2)
[2025-09-20 06:59] LABS: URINE CAST 1.02 uL (0.0-1.40)
[2025-09-20 07:36] LABS: ALT/SGPT 29.0 U/L (12-78); AST/SGOT 19.0 U/L (15-37); BILIRUBIN TOTAL 0.5 mg/dL (0.3-1.2); BUN CREA RATIO 18.0 (7.0-25.0); CREATININE SERUM 0.82 mg/dL (0.55-1.02); GFR 70.87; GLOBULINA 3.1 G/DL (2.4-3.5); GLUCOSE FASTING 111.0 mg/dL (65-100); HDL 42.0 mg/dl (40-60); OSMOLALITY SERUM 288.0 MOSM/KG (275-295); T4 FREE 1.04 NG/ML (0.76-1.46); TSH 1.03 uIU/mL (0.358-3.74); VLDL 41.0 (0-39)
[2025-09-20 07:39] LABS: CHOL HDL RATIO 7.2 (0-5.0); LDL 218.0 mg/dl (0-130)
== END 2025-09-20 06:41 | disposition home or self-care (01) ==
LOC: LAB 06:07
PROVIDERS: ATTEND Internal Medicine Sports Medicine
DX: D64.9 Anemia, unspecified (principal); E11.9 Type 2 diabetes mellitus without complications; E78.2 Mixed hyperlipidemia; I10 Essential (primary) hypertension; E03.8 Other specified hypothyroidism

== ENCOUNTER 2025-09-21 13:45 | Outpatient (CLI) | payer OTHER | END 2025-09-21 13:55 | disposition home or self-care (01) | LOC: PPH VACUNA 13:45 | PROVIDERS: ATTEND Emergency Medicine Pediatric Emergency Medicine | DX: Z23 Encounter for immunization (principal) ==